=== PATIENT | female | born 1960 | race Caucasian/White ===

== ENCOUNTER → 2019-03-17 14:22 | Outpatient (CLI) | payer OTHER, SELFPAY ==
--- NOTE | 2019-03-17 14:25 | DI.RAD.S_ITS ---
PROCEDURE: XR KNEE RT 3V INDICATIONS: Progressive weight-bearing pain discomfort status post parti TECHNIQUE: 3 views of the knee were acquired. COMPARISON: [facility] [place], CR, XR KNEE ARTHRITIC SERIES RT, 05/20/2017, 16:09. FINDINGS: Bones: There is medial hemiarthroplasty of the right knee. Prosthesis components appear intact. Mild degeneration of the lateral femorotibial compartment and patellar compartment. No fractures or dislocations. No suspicious bony lesions. Soft tissues: No joint effusion. No suspicious soft tissue calcifications. IMPRESSION: 1. Stable appearance of medial hemiarthroplasty. 2. Mild degeneration of the lateral femorotibial and patellofemoral compartments. Dictated by: Siena Becerra M.D. on 03/17/2019 at 17:51 Approved by: Siena Becerra M.D. on 03/17/2019 at 17:53
== END ==
PROVIDERS: PCP Family Medicine; Visit Provider Family Medicine
DX: M25.561 Pain in right knee (principal); Z96.651 Presence of right artificial knee joint
CPT/HCPCS: 73562

== ENCOUNTER 2019-10-14 09:28 | Emergency (ER) | payer OTHER, SELFPAY ==
[2019-10-14 09:46] VITALS: BP 128/71; PULSE 75; RESP 18; TEMP 36.9; O2SAT 99; BMI 32.8
--- NOTE | 2019-10-14 09:51 | ED.BACK ---
HPI - Back Pain/Injury General Chief Complaint: Back Pain/Injury Stated Complaint: Left hip/lower back pain 08/18 injury x1day Time Seen by Provider: 10/14/19 09:41 Source: patient Limitations: no limitations History of Present Illness HPI Narrative: The patient is a 59-year-old female who presents with left flank pain which woke her from her sleep this morning around 4:00 a.m.. She says it is fairly constant it does seem to radiate around to her hip. It hurts to move. She denies any blood in her urine painful or frequent urination. She has no known history of kidney stones. She says she does have a history of lumbar fusion this is not feel like her previous back pain or injury. She denies any known injury last evening she went to bed and was at baseline. She took Tylenol previously without any relief. She occasionally feels nauseated no vomiting. She has had decreased appetite over the past few weeks however she says that is from depression. Patient states she fell 2 days ago landing on her left hip but denies any injury at that time and was feeling well yesterday. Complaint: back pain Onset (ago): hour(s) Duration: constant Similar Symptoms Previously: No Location: left flank Severity: moderate Radiation: groin Relieving factors: none Exacerbating factors: movement Related Data Home Medications Medication Instructions Recorded Confirmed varenicline 0.5 mg tablet 0.5 mg PO BID tab 02/27/19 03/17/19 Previous Rx's Medication Instructions Recorded naproxen 500 mg tablet 500 mg PO BID PRN #30 tab 02/27/19 ammonium lactate 12 % topical cream 1 applictn TOP BID #140 gram 03/20/19 methocarbamol 500 mg tablet 500 mg PO TID #30 tab 06/04/19 cyclobenzaprine 5 mg PO TID PRN #10 tab 10/14/19 sulfamethoxazole-trimethoprim 1 tab PO BID 7 Days #14 tab 10/14/19 [Bactrim DS] Allergies Allergy/AdvReac Type Severity Reaction Status Date / Time citalopram [From Celexa] Allergy Severe anaphylaxis Verified 03/17/19 13:05 Review of Systems Review of Systems Narrative: GENERAL: Denies chills, fatigue, malaise, fever, sweats, travel HEENT: Denies sinus pain, ear pain, sore throat, difficulty swallowing, neck pain RESPIRATORY: Denies dyspnea, cough, wheezing, hemoptysis, sputum. CARDIOVASCULAR: Denies chest pain, palpitations, orthopnea, edema GASTROINTESTINAL: Denies nausea, vomiting, abdominal pain, diarrhea, constipation, melena. : + left flank pain Denies dysuria, frequency, incontinence, hematuria, urinary retention MUSCULOSKELETAL: Denies weakness, joint pain, or bony pain SKIN: No rash, no erythema, no pruritus NEUROLOGIC: Denies weakness, dizziness, headache, numbness, change in speech, confusion PSYCHIATRIC: No concerning psychosocial issues. 12 point review of systems is negative except for those stated above and HPI Patient History Medical History Chicken pox (Resolved) Chronic back pain (Chronic ~1998) Gastric ulcer (Chronic ~2009) Neuropathy (Chronic ~2018) Right knee pain (Acute) Thoracic myofascial strain (Acute) Surgical History Anesthesia (Resolved) History of appendectomy (Resolved ~1988) History of cholecystectomy (Resolved ~1998) History of hysterectomy (Resolved ~2010) History of knee replacement (Resolved ~2012) History of laminectomy (Resolved ~1994) Family History Father Cancer Mother Diabetes mellitus History of heart disease Hyperlipidemia Stroke Brother Diabetes mellitus Mental health problem Brain tumor Brother Gout Grandfather Cancer Grandmother Cancer Grandfather Cancer Social History Smoking Status: Current some day smoker Smoking Status: Current some day smoker alcohol intake frequency: 0-2 drinks per day Substance Use Type: marijuana Exam Initial Vital Signs Initial Vital Signs: Vital Signs Temperature 98.5 F 10/14/19 09:46 Pulse Rate 75 10/14/19 09:46 Respiratory Rate 18 10/14/19 09:46 Blood Pressure 128/71 10/14/19 09:46 Pulse Oximetry 99 10/14/19 09:46 GENERAL: Well-appearing, well-nourished and in no acute distress. HEENT: Head atraumatic,EOMI, pupils reactive, face symmetric, moist mucous membranes CARDIOVASCULAR: Regular rate and rhythm without murmurs, rubs or gallops. RESPIRATORY: Breath sounds equal bilaterally, no wheezes rales or rhonchi. ABDOMEN: Soft, nontender. Normoactive bowel sounds all 4 quadrants. No guarding or rebound. : Significant left flank pain tender to touch EXTREMITIES: Normal range of motion, no clubbing or edema. Neurovascularly intact NEUROLOGICAL: Alert and oriented x4.Normal gait and speech. SKIN: Warm, dry, no laceration, no petechiae, no rashes or lesions. Course Orders Ordered: ED Orders 10/14/19 10:00 CT kidney ureter bladder (KUB) Stat 10/14/19 10:12 Complete Blood Count AUTO DIFF Stat Comprehensive Metabolic Panel Stat Lipase Stat 10/14/19 11:20 Urine Culture Stat Urine Microscopic Stat Discontinued Medications Ketorolac Tromethamine (Toradol) 30 mg IV NOW ONE Stop: 10/14/19 09:51 Last Admin: 10/14/19 10:22 Dose: 30 mg Documented by: GINA Vital Signs Vital signs: Vital Signs - 8 hr 10/14/19 09:46 10/14/19 10:16 10/14/19 10:32 Temperature 98.5 F Pulse Rate 75 67 71 Respiratory Rate 18 Blood Pressure 128/71 Pulse Oximetry 99 96 98 10/14/19 11:00 10/14/19 11:30 10/14/19 11:50 Temperature Pulse Rate 60 60 54 L Respiratory Rate Blood Pressure 105/61 Pulse Oximetry 95 96 97 MDM - Back Pain/Injury Lab Data Attestation: I reviewed the patient's lab results. Result diagrams: 10/14/19 10:12 10/14/19 10:12 Labs: Lab Results 10/14/19 10/14/19 10/14/19 Range/Units 10:12 10:12 11:20 WBC 13.9 H (4.5-11.0) X10^3/uL RBC 4.57 (4.0-5.2) X10^6/uL Hgb 13.5 (12.0-16.0) g/dL Hct 39.9 (36-46) % MCV 87.3 (80-100) fL MCH 29.6 (26-34) PG MCHC 33.9 (30-36) % RDW 13.7 (11.6-14.8) % Plt Count 209 (150-400) X10^3/uL Neut % (Auto) 75.3 H (50-75) % Lymph % (Auto) 18.3 L (25-40) % [place] % (Auto) 4.4 (3-14) % Eos % (Auto) 0.7 L (2-4) % Baso % (Auto) 1.3 (0-2) % Neut # (Auto) 94962 H (8255-9800) /uL Lymph # (Auto) 2500 (3655-7114) /uL [place] # (Auto) 600 (0-900) /uL Eos # (Auto) 100 (0-450) /uL Baso # (Auto) 200 H (0-100) /uL Sodium 137 (137-145) mmol/L Potassium 4.6 (3.4-5.1) mmol/L Chloride 105 (98-107) mmol/L Carbon Dioxide 24 (22-32) mmol/L BUN 16 (7-17) mg/dL Creatinine 0.59 (0.52-1.04) mg/dL Estimated GFR > 60.0 (>60) mL/min BUN/Creatinine Ratio 27.1 H (6-22) Glucose 102 H (70-100) mg/dL Calcium 10.2 (8.4-10.2) mg/dL Total Bilirubin 1.1 (0.2-1.3) mg/dL AST 34 (14-36) IU/L ALT 22 (<35) IU/L Alkaline Phosphatase 64 (38-126) U/L Total Protein 7.5 (6.3-8.2) g/dL Albumin 4.7 (3.5-5.0) g/dL Globulin 2.8 (1.7-4.1) g/dL Albumin/Globulin Ratio 1.7 (1.0-2.8) Lipase 50 (23-300) U/L Urine RBC 1-5/hpf (0-5/HPF) Urine WBC 5-10/hpf H (0-5/HPF) Ur Squamous Epith Cells 1-5 /hpf (0-5/HPF) Urine Bacteria None seen (None) Ur Culture Indicated? Specimen cultured Urine Dip Bedside Urine Glucose Negative Bedside Urine Bilirubin - Negative Bedside Urine Ketone - Negative Urine Specific [place] 1.020 Bedside Urine Occult Blood +/- Bedside Urine pH 5.5 Bedside Urine Protein - Negative Bedside Urine Urobilinogen - Negative Bedside Urine Nitrite - Negative Bedside Urine Leukocytes + [address] scan - abdomen/pelvis: Radiologist's Impression: PROCEDURE: CT KIDNEY URETER BLADDER (KUB) INDICATIONS: left flank pain TECHNIQUE: Noncontrast 5 mm thick sections acquired from the diaphragms to the symphysis. 5 mm thick coronal and sagittal reformats were then performed. For radiation dose reduction, the following was used: automated exposure control, adjustment of mA and/or kV according to patient size. COMPARISON: None. FINDINGS: Image quality: Excellent. Lung bases: Lung bases are clear. Heart size is normal. Urinary system: Right kidney: Malrotated. No stone or hydronephrosis. Right ureter: Unremarkable Left kidney: Malrotated. No stone or hydronephrosis. Left ureter: Unremarkable Bladder: No bladder stones. No bladder wall thickening. Other solid organs: Liver is normal in size. Small right lobe liver cyst measuring 1.4 cm. Gallbladder is surgically absent . Pancreas is normal in contours. Spleen is normal in size. No adrenal nodules. Peritoneum and bowel: Unenhanced bowel loops demonstrate normal wall thickness and caliber. No free fluid or air. Nodes and vessels: No retroperitoneal or mesenteric adenopathy by size criteria. Aorta and inferior vena cava are normal in caliber. Abdominal wall: No ventral hernias. Pelvis: No free pelvic fluid. No inguinal hernias or adenopathy. Bones: No suspicious bony lesions. No vertebral body compression fractures. Remote posterior laminectomy and posterolateral chana and pedicle screw fixation at L4 through S1. IMPRESSION: 1. 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 2. No renal stone, hydronephrosis, or ureteral stone. 3. No evidence of acute abdominal process. Dictated by: Phu Tadeo M.D. on 10/14/2019 at 10:33 Approved by: Phu Tadeo M.D. on 10/14/2019 at 10:38 MDM Narrative Medical decision making narrative: The patient does have mild leukocytosis and pain in her left flank with leukocytes possible pyelonephritis but does not appear septic she is afebrile. Also possible muscle spasm from her fall 2 days ago although she was normal in feeling okay yesterday. Will treat her for both at this time. I discussed all findings with the patient, Education has been performed regarding treatment plan, diagnosis, warning signs and symptoms and all concerns have been addressed. Verbally agree with and understood all of the above. Discharge Plan Departure Patient Disposition: Home Clinical Impression: Pyelonephritis of left kidney Discharge Date/Time: 10/14/19 12:06 Instructions: DI for Kidney Infection Activity Restrictions/Additional Instructions: *You have been diagnosed with Kidney infection *What to do: Possible kidney infection will stay put you on antibiotics to see if this improves her symptoms. Also possible muscle strain from fall *Continue to take medications as directed Bactrim 1 tablet twice a day for 7 days Ibuprofen 800 mg every 8 hours with food if needed for [id number] pain Flexeril 5 mg every 8 hours only if needed for muscle spasm this does cause drowsiness and sleeping do not drive--> DO NOT TAKE WITH METHOCARBAMOL, may take 1 or the other depending on which 1 works better for you but do not combine *Follow up with your primary care provider in 2-3 days *Return to ER if you should have increasing pain, persistent vomiting, weakness, confusion, changes in bowel or bladder habits or any new, worsening or concerning symptoms Prescriptions: New sulfamethoxazole-trimethoprim [Bactrim DS] 800-160 mg tablet 1 tab PO BID 7 Days Qty: 14 RF: 0 cyclobenzaprine 5 mg tablet 5 mg PO TID PRN (Reason: muscle spasm) Qty: 10 RF: 0 No Action naproxen [Naprosyn] 500 mg tablet 500 mg PO BID PRN (Reason: pain) Qty: 30 RF: 1 ammonium lactate 12 % cream 1 applictn TOP BID Qty: 140 RF: 1 methocarbamol 500 mg tablet 500 mg PO TID Qty: 30 RF: 0 Chantix 0.5 mg tablet 0.5 mg PO BID RF: 0 Referrals: Nolan Lazo DO [Primary Care Provider] -
--- NOTE | 2019-10-14 10:00 | DI.CT.S_ITS ---
PROCEDURE: CT KIDNEY URETER BLADDER (KUB) INDICATIONS: left flank pain TECHNIQUE: Noncontrast 5 mm thick sections acquired from the diaphragms to the symphysis. 5 mm thick coronal and sagittal reformats were then performed. For radiation dose reduction, the following was used: automated exposure control, adjustment of mA and/or kV according to patient size. COMPARISON: None. FINDINGS: Image quality: Excellent. Lung bases: Lung bases are clear. Heart size is normal. Urinary system: Right kidney: Malrotated. No stone or hydronephrosis. Right ureter: Unremarkable Left kidney: Malrotated. No stone or hydronephrosis. Left ureter: Unremarkable Bladder: No bladder stones. No bladder wall thickening. Other solid organs: Liver is normal in size. Small right lobe liver cyst measuring 1.4 cm. Gallbladder is surgically absent . Pancreas is normal in contours. Spleen is normal in size. No adrenal nodules. Peritoneum and bowel: Unenhanced bowel loops demonstrate normal wall thickness and caliber. No free fluid or air. Nodes and vessels: No retroperitoneal or mesenteric adenopathy by size criteria. Aorta and inferior vena cava are normal in caliber. Abdominal wall: No ventral hernias. Pelvis: No free pelvic fluid. No inguinal hernias or adenopathy. Bones: No suspicious bony lesions. No vertebral body compression fractures. Remote posterior laminectomy and posterolateral chana and pedicle screw fixation at L4 through S1. IMPRESSION: 1. 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 2. No renal stone, hydronephrosis, or ureteral stone. 3. No evidence of acute abdominal process. Dictated by: Phu Tadeo M.D. on 10/14/2019 at 10:33 Approved by: Phu Tadeo M.D. on 10/14/2019 at 10:38
[2019-10-14 10:16] VITALS: PULSE 67; O2SAT 96
[2019-10-14] MEDS: KETOROLAC 60 MG/2 ML VIAL 30 MG IV (10:22)
[2019-10-14 10:24] LABS: Add Manual Diff / Slide Review NO; Basophils Absolute Auto 200 /uL (0-100); Basophils Percent Auto 1.3 % (0-2); Eosinophils Absolute Auto 100 /uL (0-450); Eosinophils Percent Auto 0.7 % (2-4); Hematocrit 39.9 % (36-46); Hemoglobin 13.5 g/dL (12.0-16.0); Lymphocytes Absolute Auto 2500 /uL (1100-4500); Lymphocytes Percent Auto 18.3 % (25-40); Mean Corpuscular HGB Conc 33.9 % (30-36); Mean Corpuscular Hemoglobin 29.6 PG (26-34); Mean Corpuscular Volume 87.3 fL (80-100); Monocytes Absolute Auto 600 /uL (0-900); Monocytes Percent Auto 4.4 % (3-14); Neutrophils Absolute Auto 10500 /uL (1500-7000); Neutrophils Percent Auto 75.3 % (50-75); Platelet Count 209 X10^3/uL (150-400); Red Blood Cell Count 4.57 X10^6/uL (4.0-5.2); Red Cell Distribution Width 13.7 % (11.6-14.8); White Blood Cell Count 13.9 X10^3/uL (4.5-11.0)
[2019-10-14 10:32] VITALS: PULSE 71; O2SAT 98
[2019-10-14 11:00] VITALS: PULSE 60; O2SAT 95
[2019-10-14 11:00] LABS: Alanine Aminotransferase 22 IU/L (<35); Albumin 4.7 g/dL (3.5-5.0); Albumin Globulin Ratio 1.7 (1.0-2.8); Alkaline Phosphatase 64 U/L (38-126); Aspartate Aminotransferase 34 IU/L (14-36); BUN Creatinine Ratio 27.1 (6-22); Bilirubin Total 1.1 mg/dL (0.2-1.3); Blood Urea Nitrogen 16 mg/dL (7-17); Calcium 10.2 mg/dL (8.4-10.2); Carbon Dioxide 24 mmol/L (22-32); Chloride 105 mmol/L (98-107); Estimated Glomerular Filt Rate > 60.0 mL/min (>60); Globulin 2.8 g/dL (1.7-4.1); Glucose 102 mg/dL (70-100); HEMOLYSIS 111 (0-50); Lipase 50 U/L (23-300); Potassium 4.6 mmol/L (3.4-5.1); Sodium 137 mmol/L (137-145); Total Protein 7.5 g/dL (6.3-8.2)
[2019-10-14 11:30] VITALS: PULSE 60; O2SAT 96
[2019-10-14 11:36] LABS: Bacteria Urine None Seen
[2019-10-14 11:42] LABS: Culture Indicated Urine Specimen Cultured; RBC Urine 1-5/HPF (0-5/HPF); Squamous Epithelial Cell Urine 1-5 /HPF (0-5/HPF); WBC Urine 5-10/HPF (0-5/HPF)
[2019-10-14 11:50] VITALS: BP 105/61; PULSE 54; O2SAT 97
== END 2019-10-14 12:06 | disposition home or self-care (01) ==
PROVIDERS: Emergency Provider Emergency Medicine; PCP Family Medicine
DX: N12 Tubulo-interstitial nephritis, not specified as acute or chronic (principal); D72.829 Elevated white blood cell count, unspecified
CPT/HCPCS: 36415; 74176; 80053; 81003; 81015; 83690; 85025; 87086; 96374; 99284; J1885

== ENCOUNTER → 2020-07-06 18:48 | Outpatient (CLI) | payer OTHER, SELFPAY ==
--- NOTE | 2020-07-06 18:54 | DI.MRI.S_ITS ---
PROCEDURE: MR LUMBAR SPINE WO CON INDICATIONS: RADICULOPATHY LUMBAR REGION TECHNIQUE: Noncontrast sagittal T1 spin echo and T2 fast echo, sagittal STIR, axial T1 and T2 fast spin echo through the lumbar spine. In cases with scoliosis, additional coronal T2 fast spin echo may be performed. COMPARISON: [facility], RG, MRI L-SPINE W/WO CONTRAST, 08/03/2016, 16:00. FINDINGS: Image quality: Excellent. Alignment and Curvature: There is mild L5-S1 anterolisthesis. Bones: Postsurgical changes compatible with L4-S1 posterior fusion, L5 laminectomy and S1 laminectomy. No acute vertebral body compression fractures. Spinal Cord: Conus medullaris terminates at the L1 level. Visualized cord demonstrates normal signal and size. Paraspinous Soft Tissues: No paravertebral masses. Small fluid collection at the L5 laminectomy site is stable compared to the prior exam likely represents postsurgical seroma. T12-L1: Normal appearance. L1-L2: Normal appearance. L2-L3: Normal appearance. L3-L4: Loss of disc signal. Mild, diffuse disc bulge. Mild bilateral facet hypertrophy. Mild narrowing of the central canal. Mild bilateral neural foraminal narrowing. No neural compression. L4-L5: Status post fusion. Mild bilateral facet hypertrophy. No central stenosis. Mild bilateral neural foraminal narrowing. No neural compression. L5-S1: Status post fusion. Mild bilateral facet hypertrophy. No central stenosis. Moderate to severe bilateral neural foraminal narrowing with slight compression of the exiting L5 nerve roots. IMPRESSION: 1. Stable postsurgical changes. 2. Multilevel degenerative disc disease. 3. Multilevel facet arthropathy. 4. No severe central canal narrowing. 5. Moderate to severe bilateral L5-S1 neural foraminal narrowing with slight compression of the exiting bilateral L5 nerve roots. 6. Small fluid collection in the posterior paraspinous soft tissues at the L5 laminectomy site stable compared to prior examination. Finding likely represents postsurgical seroma. Dictated by: Tea Baires MD, PhD on 07/07/2020 at 9:04 Approved by: Tea Baires MD, PhD on 07/07/2020 at 9:10
== END ==
PROVIDERS: PCP Family Medicine; Referring Provider Registered Nurse; Visit Provider Registered Nurse
DX: M54.16 Radiculopathy, lumbar region (principal); M51.36 Other intervertebral disc degeneration, lumbar region; M47.816 Spondylosis without myelopathy or radiculopathy, lumbar region
CPT/HCPCS: 72148

== ENCOUNTER → 2025-01-31 12:51 | Outpatient (CLI) | payer OTHER, SELFPAY ==
--- NOTE | 2025-01-31 12:53 | DI.MRI.S_ITS ---
PROCEDURE: MR SHOULDER LT WO CON INDICATIONS: left shoulder pain TECHNIQUE: Noncontrast oblique coronal T2 fast spin echo with fat saturation, oblique sagittal T1 spin echo and T2 fast spin echo with fat saturation, axial T1 spin echo and T2 fast spin echo with fat saturation through the shoulder. COMPARISON: None. FINDINGS: Image quality: Excellent. Rotator cuff: Tendinopathy and near full-thickness tear of the distal supraspinatus and distal infraspinatus over a span of approximately 8 mm from the distal attachment. Tendinopathy with increased T2 weighted signal and thickening distal subscapularis. Teres minor is normal. No significant muscular fatty atrophy. Bones and bursae: Moderate degenerative changes acromioclavicular joint with capsular hypertrophy, osteophytes, mild increased joint space fluid, subchondral edema. Type 2 laterally downsloping acromion. Mild degenerative changes of the glenohumeral joint with diffuse cartilaginous thinning of the humeral head and labral cartilage. Subtle irregularities in the anterior superior labrum likely related to degenerative change rather than SLAP tear. No MR evidence of fracture or dislocation. Capsule and soft tissues: Mild increased subacromial/subdeltoid bursal fluid. Biceps tendon is located within the biceps groove. Mild increased T2 weighted signal, tendinopathy of the biceps anchor without tear or retraction. No significant glenohumeral joint effusion. IMPRESSION: Near complete tear distal supraspinatus and infraspinatus as discussed above. Degenerative changes. Other findings as above. Dictated by: Jamshid Yi M.D. on 02/02/2025 at 8:40 Approved by: Jamshid Yi M.D. on 02/02/2025 at 8:45
== END ==
LOC: MRI 12:52
PROVIDERS: PCP Nurse Practitioner; Referring Provider Physician Assistant Surgical; Visit Provider Physician Assistant Surgical
DX: M75.112 Incomplete rotator cuff tear or rupture of left shoulder, not specified as traumatic (principal); M25.712 Osteophyte, left shoulder; M25.512 Pain in left shoulder
CPT/HCPCS: 73221